=== PATIENT | male | born 1955 | race African-American/Black ===

== ENCOUNTER 2023-06-25 09:26 | Inpatient (IN) | payer OTHER ==
[2023-06-25 10:00] VITALS: BMI 18.6
[2023-06-25] MEDS ORDERED: DICYCLOMINE HCL 10 MG CAPSULE PO PRN (11:37)
[2023-06-25] MEDS ORDERED: ONDANSETRON *ODT* 4 MG TABLET SL PRN (11:37)
[2023-06-25] MEDS ORDERED: cloNIDine HCL 0.1 MG TABLET PO PRN (11:37)
[2023-06-25] MEDS ORDERED: POLYETHYLENE GLYCOL (HEALTHYLAX) 3350 17 GM PACKET PO PRN (11:37)
[2023-06-25] MEDS ORDERED: METHOCARBAMOL 500 MG TABLET PO PRN (11:37)
[2023-06-25] MEDS ORDERED: BENZOCAINE/MENTHOL (CHLORASEPTIC ) LOZENGE MM PRN (11:37)
[2023-06-25] MEDS ORDERED: BENZONATATE 200 MG CAPSULE PO PRN (11:37)
[2023-06-25] MEDS ORDERED: MAGNESIUM HYDROX 2400MG/30ML ORAL SUSPENSION 30 ML CUP PO PRN (11:37)
[2023-06-25] MEDS ORDERED: ACETAMINOPHEN 325 MG TABLET (FP) PO PRN (11:37)
[2023-06-25] MEDS ORDERED: NALOXONE HCL 0.4 MG/ML VIAL IM PRN (11:37)
[2023-06-25] MEDS ORDERED: guaiFENesin 600 MG TABLET.ER (FP) PO PRN (11:37)
[2023-06-25] MEDS ORDERED: LOPERAMIDE HCL 2 MG CAPSULE PO PRN (11:37)
[2023-06-25] MEDS ORDERED: IBUPROFEN 400 MG TABLET (FP) PO PRN (11:37)
[2023-06-25] MEDS ORDERED: NALOXONE HCL (KLOXXADO) 8 MG SPRAY NS PRN (11:37)
[2023-06-25] MEDS ORDERED: MAG HYDROX/AL HYDROX/SIMETH 30 ML UNIT-DOSE CUP PO PRN (11:37)
[2023-06-25] MEDS ORDERED: BISMUTH SUBSALICYLATE 524 MG/30 ML PO PRN (11:37)
[2023-06-25] MEDS ORDERED: methaDONE HCL 10 MG TABLET (FOR DETOX USE ONLY) PO ONE (11:37)
[2023-06-25] MEDS ORDERED: methaDONE HCL 10 MG TABLET (FOR DETOX USE ONLY) ONE (11:57)
[2023-06-25] MEDS ORDERED: MOXIFLOXACIN HCL 0.5% OPHTHALMIC 3 ML BOTTLE OD SCH (14:00)
[2023-06-25] MEDS: MOXIFLOXACIN HCL 0.5% OPHTHALMIC 3 ML BOTTLE OD SCH ×3 (14:57→22:41)
[2023-06-25] MEDS: MELATONIN 5 MG TABLETS PO SCH (22:39)
[2023-06-25] MEDS: hydrOXYzine PAMOATE 25 MG CAPSULE (FP) PO PRN (22:39)
[2023-06-25] MEDS: THIAMINE HCL 100 MG TABLET (FP) PO SCH (22:39)
[2023-06-25] MEDS: SULFAMETHOXAZOLE/TRIMETHOPRIM 800MG/160MG D.S. TABLET PO SCH (22:39)
[2023-06-26] MEDS: PRENATAL VITAMINS W/ FOLIC ACID TABLET (FP) PO SCH (10:16)
[2023-06-26] MEDS: SULFAMETHOXAZOLE/TRIMETHOPRIM 800MG/160MG D.S. TABLET PO SCH ×2 (10:17→21:27)
[2023-06-26] MEDS: hydrOXYzine PAMOATE 25 MG CAPSULE (FP) PO PRN (10:17)
[2023-06-26] MEDS: MOXIFLOXACIN HCL 0.5% OPHTHALMIC 3 ML BOTTLE OD SCH ×4 (10:18→21:32)
[2023-06-26] MEDS: THIAMINE HCL 100 MG TABLET (FP) PO SCH (21:27)
[2023-06-26] MEDS: MELATONIN 5 MG TABLETS PO SCH (21:27)
[2023-06-27] MEDS ORDERED: methaDONE HCL 10 MG TABLET (FOR DETOX USE ONLY) PO ONE (10:00)
[2023-06-27] MEDS: PRENATAL VITAMINS W/ FOLIC ACID TABLET (FP) PO SCH (10:03)
[2023-06-27] MEDS: SULFAMETHOXAZOLE/TRIMETHOPRIM 800MG/160MG D.S. TABLET PO SCH ×2 (10:03→22:42)
[2023-06-27] MEDS: hydrOXYzine PAMOATE 25 MG CAPSULE (FP) PO PRN ×2 (10:03→22:42)
[2023-06-27] MEDS: MOXIFLOXACIN HCL 0.5% OPHTHALMIC 3 ML BOTTLE OD SCH ×4 (10:04→22:43)
[2023-06-27] MEDS ORDERED: diazePAM 5 MG TABLET PO PRN (11:12)
[2023-06-27] MEDS: IBUPROFEN 600 MG TABLET (FP) PO PRN (17:00)
[2023-06-27] MEDS: THIAMINE HCL 100 MG TABLET (FP) PO SCH (22:42)
[2023-06-27] MEDS: MELATONIN 5 MG TABLETS PO SCH (22:42)
[2023-06-28] MEDS: SULFAMETHOXAZOLE/TRIMETHOPRIM 800MG/160MG D.S. TABLET PO SCH ×2 (09:50→21:58)
[2023-06-28] MEDS: PRENATAL VITAMINS W/ FOLIC ACID TABLET (FP) PO SCH (09:50)
[2023-06-28] MEDS: hydrOXYzine PAMOATE 25 MG CAPSULE (FP) PO PRN ×2 (09:51→22:39)
[2023-06-28] MEDS: MOXIFLOXACIN HCL 0.5% OPHTHALMIC 3 ML BOTTLE OD SCH ×4 (10:31→22:01)
[2023-06-28] MEDS ORDERED: LORazepam 0.5 MG TABLET PO PRN (12:15)
[2023-06-28] MEDS ORDERED: diazePAM 5 MG TABLET PO PRN (12:24)
[2023-06-28] MEDS: IBUPROFEN 600 MG TABLET (FP) PO PRN (15:51)
[2023-06-28] MEDS: MELATONIN 5 MG TABLETS PO SCH (21:57)
[2023-06-28] MEDS: THIAMINE HCL 100 MG TABLET (FP) PO SCH (21:58)
[2023-06-29] MEDS: IBUPROFEN 600 MG TABLET (FP) PO PRN ×2 (09:40→17:24)
[2023-06-29] MEDS ORDERED: methaDONE HCL 10 MG TABLET (FOR DETOX USE ONLY) PO ONE (10:00)
[2023-06-29] MEDS: PRENATAL VITAMINS W/ FOLIC ACID TABLET (FP) PO SCH (10:02)
[2023-06-29] MEDS: SULFAMETHOXAZOLE/TRIMETHOPRIM 800MG/160MG D.S. TABLET PO SCH ×2 (10:02→22:25)
[2023-06-29] MEDS: MOXIFLOXACIN HCL 0.5% OPHTHALMIC 3 ML BOTTLE OD SCH ×4 (10:02→22:38)
[2023-06-29] MEDS: hydrOXYzine PAMOATE 25 MG CAPSULE (FP) PO PRN ×2 (10:02→22:26)
[2023-06-29] MEDS: MELATONIN 5 MG TABLETS PO SCH (22:25)
[2023-06-29] MEDS: THIAMINE HCL 100 MG TABLET (FP) PO SCH (22:25)
[2023-06-30] MEDS: IBUPROFEN 600 MG TABLET (FP) PO PRN (03:38)
[2023-06-30] MEDS: hydrOXYzine PAMOATE 25 MG CAPSULE (FP) PO PRN (05:48)
[2023-06-30 06:36] VITALS: BP 110/71; PULSE 73; RESP 17; TEMP 97.7
[2023-06-30] MEDS: SULFAMETHOXAZOLE/TRIMETHOPRIM 800MG/160MG D.S. TABLET PO SCH (09:33)
[2023-06-30] MEDS: MOXIFLOXACIN HCL 0.5% OPHTHALMIC 3 ML BOTTLE OD SCH (09:33)
[2023-06-30] MEDS: PRENATAL VITAMINS W/ FOLIC ACID TABLET (FP) PO SCH (09:33)
== END 2023-06-30 09:35 | disposition home or self-care (01) | DRG 897 ==
LOC: YASAS 09:26 → Y6N 12:04
PROVIDERS: ADMIT Allergy & Immunology; ATTEND Surgery
PROC: HZ2ZZZZ Detoxification Services for Substance Abuse Treatment (ICD-10-PCS; principal; 2023-06-25)
DX: F11.23 Opioid dependence with withdrawal (principal); F14.20 Cocaine dependence, uncomplicated; L03.211 Cellulitis of face; F12.20 Cannabis dependence, uncomplicated; F17.210 Nicotine dependence, cigarettes, uncomplicated; R26.2 Difficulty in walking, not elsewhere classified; Z99.89 Dependence on other enabling machines and devices; Z96.652 Presence of left artificial knee joint
CPT/HCPCS: 87635; 87811; 93005; 93010